=== PATIENT | male | born 1990 | race African-American/Black ===

== ENCOUNTER 2023-12-18 19:25 | Emergency (ER) | payer MEDICAID ==
[~2023-12-18] VITALS: Ht 182.9 cm; Wt 114.0 kg
[2023-12-18 19:34] VITALS: PULSE 110; TEMP 97.8; O2SAT 97
[2023-12-19 00:24] VITALS: BP 138/84; RESP 18
[2023-12-19] MEDS: HYDROCODONE/ACETAMINOPHEN 5/325MG TABLET PO ONE (00:24)
[2023-12-19 00:31] LABS: BASOPHILS % 0.4 % (0.0-2.0); EOSINOPHILS % 0.1 % (0.0-5.0); HEMATOCRIT. 40.5 % (42.0-52.0); HEMOGLOBIN. 13.7 g/dL (14.0-18.0); LYMPHOCYTES % 9.8 % (20.0-50.0); MEAN CORPUSCULAR HEMOGLOBIN 27.7 pg (28.0-32.0); MEAN CORPUSCULAR VOLUME 81.5 fL (80.0-94.0); MEAN PLATELET VOLUME 8.2 fl (7.4-10.4); NEUTROPHILS % 77.7 % (40.0-76.0); PLATELET 378 x1000/uL (130-400); RED BLOOD CELL COUNT 4.96 mill/uL (4.7-6.1); RED CELL DISTRIBUTION WIDTH 13.8 % (11.6-14.6); WHITE BLOOD COUNT 14.2 x1000/uL (4.5-11.0)
[2023-12-19 00:37] LABS: CHLORIDE 97 mEq/L (98-107); POTASSIUM 3.7 mEq/L (3.5-5.1); SODIUM 134 mEq/L (136-145)
[2023-12-19 00:38] LABS: CALCIUM 10.2 mg/dL (8.7-10.4); CARBON DIOXIDE 26 mEq/L (21-32)
[2023-12-19 00:43] LABS: GLUCOSE 107 mg/dL (70-105); UREA NITROGEN BLOOD 7 mg/dL (9-23)
[2023-12-19] MEDS ORDERED: GABA100C MT (03:32)
[2023-12-19] MEDS ORDERED: IBUP-2029 MT (03:32)
== END 2023-12-19 06:48 | disposition home or self-care (01) ==
LOC: ER 19:25
DX: M79.604 Pain in right leg (principal); M79.605 Pain in left leg; G62.9 Polyneuropathy, unspecified; R60.0 Localized edema; I10 Essential (primary) hypertension
CPT/HCPCS: 36415; 80048; 85025; 93970; 99284